=== PATIENT | female | born 1975 | race Caucasian/White ===

== ENCOUNTER → 2017-03-08 | Outpatient (CLI) | payer OTHER | LOC: FIMAGING 16:01 | DX: Z12.31 Encounter for screening mammogram for malignant neoplasm of breast (principal) | CPT/HCPCS: G0202 ==

== ENCOUNTER → 2018-03-21 | Outpatient (CLI) | payer OTHER | LOC: FIMAGING 14:31 | PROVIDERS: ATTEND Obstetrics & Gynecology | DX: Z12.31 Encounter for screening mammogram for malignant neoplasm of breast (principal) ==

== ENCOUNTER 2019-01-15 06:36 | Day surgery (SDC) | payer OTHER ==
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
[2019-01-15] MEDS ORDERED: SILVER NITRATE APPLICATOR 1 APPL TP ONE (07:33)
[2019-01-15] MEDS ORDERED: LR 1,000 ML IV ONE (07:34)
--- NOTE | 2019-01-15 07:34 | PDANEPAE ---
ANE History of Present Illness heavy menses, anemia ANE Past Medical History - Cardiovascular History Hx Hypertension: No Hx Arrhythmias: No Hx Chest Pain: No Hx Coronary Artery / Peripheral Vascular Disease: No Hx CHF / Valvular Disease: No Hx Palpitations: No - Pulmonary History Hx COPD: No Hx Asthma/Reactive Airway Disease: No Hx Recent Upper Respiratory Infection: No Hx Oxygen in Use at Home: No Hx Sleep Apnea: No Sleep Apnea Screening Result - Last Documented: Negative - Neurologic History Hx Cerebrovascular Accident: No Hx Seizures: No Hx Dementia: No - Endocrine History Hx Diabetes: No Hypothyroid: No Hyperthyroid: No Obesity: no - Renal History Hx Renal Disorders: No - Liver History Hx Hepatic Disorders: No - Neurological & Psychiatric Hx Hx Neurological and Psychiatric Disorders: No Neurological / Psychiatric History Comment: SITUATIONAL ANXIETY - Cancer History Hx Cancer: Yes Cancer History Comment: BASAL CELL REMOVED FROM CHEST - Congenital Disorder History Hx Congenital Disorders: No - GI History GERD: no Hx Gastrointestinal Disorders: No - Other Health History Other Health History: DYSMENORHEA - Chronic Pain History Chronic Pain: No - Surgical History Prior Surgeries: R KNEE ACL REPAIR. ANE Review of Systems Review of systems is: negative Review of Systems: - Exercise capacity METS (RN): 5 METS ANE Patient History - Allergies Allergies/Adverse Reactions: No Known Allergies Allergy (Unverified 12/16/12 06:30) - Home Medications Home medications: home medication list seen and reviewed Home Medications: Calcium/Magnesium/Zinc [Jyppoyp-Rmgaqcwbe-Oopr Tab] 12/16/12 [Last Taken ] Docusate Sodium [Colace 100 MG (OTC)] 12/16/12 [Last Taken 12/15/12] Ferrous Sulfate [Demarcus-Gen-Kate] 12/16/12 [Last Taken 12/15/12] Vit27&Calcium/Iron/FA [ Rx 1 Tablet (RX)] 12/16/12 [Last Taken 12/15/12] diphenhydrAMINE [Benadryl 25 MG (OTC)] 12/16/12 [Last Taken 12/15/12] - NPO status NPO Status: no food or drink >8 hours - Anes Hx Anes Hx: no prior problems - Smoking Hx Smoking Status: Never smoked - Family Anes Hx Family Anes Hx: none Family Hx Anesthesia Complications: NONE ANE Labs/Vital Signs - Vital Signs Height: 167.64 cm Weight: 61.235 kg ANE Physical Exam - Airway Neck exam: FROM Mallampati Score: Class 2 Mouth exam: normal dental/mouth exam - Pulmonary Pulmonary: no respiratory distress, clear to auscultation - Cardiovascular Cardiovascular: regular rate and rhythym, no murmur, rub, or gallop ANE Anesthesia Plan Anesthesia Plan: general endotracheal anesthesia
[2019-01-15] MEDS ORDERED: MIDAZOLAM 2 MG/2 ML VIAL IVP ONE (07:39)
[2019-01-15] MEDS ORDERED: fentaNYL 250 MCG/5 ML INJ ONE (08:07)
[2019-01-15] MEDS ORDERED: PROPOFOL/EMULSION 500 MG/50 ML BOTTLE IV ONE (08:08)
[2019-01-15] MEDS ORDERED: LIDOCAINE 2% 5 ML SDV ONE (08:10)
[2019-01-15] MEDS ORDERED: ROCURONIUM 50 MG/5 ML VIAL ONE (08:13)
--- NOTE | 2019-01-15 08:25 | PDHPUP ---
History & Physical Update H&P update statement: This history and physical update is based on an assessment of the patient which was completed after admission or registration (within 24 hours), but prior to the surgery/procedure. H&P update: H&P reviewed & patient examined, changes noted (pt has decided to proceed with Sarah endometrial ablation)
[2019-01-15] MEDS ORDERED: DOXYCYCLINE INJ 100 MG in NS 250 ML IV ONE (08:28)
[2019-01-15] MEDS ORDERED: ONDANSETRON 4 MG/2 ML VIAL ONE (08:47)
[2019-01-15] MEDS ORDERED: DEXAMETHASONE 4 MG/ML VIAL ONE (08:48)
[2019-01-15] MEDS ORDERED: PROMETHAZINE HCL 25 MG/ML INJ IVP PRN (09:03)
[2019-01-15] MEDS ORDERED: LR 500 ML IV PRN (09:03)
[2019-01-15] MEDS ORDERED: ONDANSETRON 4 MG/2 ML VIAL IVP PRN (09:03)
[2019-01-15] MEDS ORDERED: fentaNYL 100 MCG/2 ML INJ IVP PRN (09:03)
[2019-01-15] MEDS ORDERED: NALOXONE HCL 0.4 MG/ML INJ IVP PRN (09:03)
[2019-01-15] MEDS ORDERED: DIAZEPAM 5 MG/ML 1 ML SYR IVP PRN (09:03)
[2019-01-15] MEDS ORDERED: HYDROmorphONE/DILAUDID 2 MG/ML INJ IVP PRN (09:03)
--- NOTE | 2019-01-15 09:03 | POSTANESTH ---
Post Anesthetic Evaluation Cardiovascular Status: Normal, Stable Respiratory Status: Normal, Stable Level of Consciousness/Mental Status: Can Participate in Eval Pain Control: Adequate, Prn Tx Ordered Nausea/Vomiting Control: Adequate, Prn Tx Ordered Complications Possibly Related to Anesthesia: None Noted
[2019-01-15] MEDS ORDERED: SUGAMMADEX SODIUM 200 MG/2 ML VIAL IVP ONE (09:05)
[2019-01-15] MEDS ORDERED: KETOROLAC 30 MG/1 ML SDV ONE (09:12)
[2019-01-15] MEDS ORDERED: IBUPROFEN 600 MG TAB PO PRN (09:20)
--- NOTE | 2019-01-15 09:20 | POSTOPPROG ---
Post Op Note Date of Operation: 01/15/19 Surgeon: Georgiana Cross Anesthesiologist: Dr Lara Anesthesia: GET(General Endotracheal) Pre-op Diagnosis: menomenorrhagia, endometrial polyp Post-op Diagnosis: same Procedure: Hysteroscopy D and c, polypectomy, endometrial ablation Findings: endometrial polyp Inf/Abcess present in the surg proc area at time of surgery?: No Depth: Organ Space EBL: Minimal Total fluids administered: 300 Complications: none Bowel Protocol: No Clean Closure Performed: No Specimen(s): endometrial polyp and endometrial curettings.
[2019-01-15] MEDS ORDERED: oxyCODONE IR 5 MG TAB PO PRN (09:21)
[2019-01-15] MEDS ORDERED: ONDANSETRON DISINTEGRATING 4 MG TAB PO PRN (09:37)
[2019-01-15 10:01] VITALS: BP 101/64
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
== END 2019-01-15 11:40 | disposition home or self-care (01) ==
LOC: FSGY 06:36
PROVIDERS: ATTEND Obstetrics & Gynecology
PROC: 0UDB8ZZ Extraction of Endometrium, Via Natural or Artificial Opening Endoscopic (ICD-10-PCS; principal; 2019-01-15 08:15)
PROC: 0UB98ZX Excision of Uterus, Via Natural or Artificial Opening Endoscopic, Diagnostic (ICD-10-PCS; principal; 2019-01-15 08:15)
DX: N84.0 Polyp of corpus uteri (principal); N92.1 Excessive and frequent menstruation with irregular cycle
CPT/HCPCS: 58561; C1782; J1100; J1885; J2250; J2405; J2704; J3010

== ENCOUNTER → 2019-04-21 | Outpatient (CLI) | payer OTHER | LOC: FIMAGING 13:26 ==